=== PATIENT | female | born 1990 | race Caucasian/White ===

== ENCOUNTER 2017-07-30 06:08 | Emergency (ER) | payer OTHER ==
[2017-07-30] MEDS ORDERED: NS 0.9% 1000 ML* 1,000 ML IV ONE (07:46)
[2017-07-30] MEDS ORDERED: Metoclopramide IV* 5 MG/ML 2 ML VIAL IV ONE (07:47)
[2017-07-30 08:04] LABS: Hematocrit 35 % (35-47); Hemoglobin 12.1 g/dl (12.0-16.0); Mean Corpuscular HGB Conc 35 g/dl (31-36); Mean Corpuscular Hemoglobin 31 pg (27-31); Mean Corpuscular Volume 89 fL (80-97); Mean Platelet Volume 7 um3 (7.4-10.4); Red Blood Count 3.92 10^6/ul (4.0-5.4); Red Cell Distribution Width 13 % (10.5-15); White Blood Count 6.5 10^3/ul (3.5-10.8)
[2017-07-30 08:10] LABS: Urine Bacteria Absent (Absent); Urine Bilirubin Negative (Negative); Urine Glucose Negative (Negative); Urine Nitrite Negative (Negative)
[2017-07-30 08:19] LABS: Albumin 3.3 g/dL (3.2-5.2); BUN/Creatinine Ratio 17.1 (8-20); C Reactive Protein 3.32 mg/L (< 5.00); Calcium 8.6 mg/dL (8.6-10.3); EGFR African American 237.6 (>60); EGFR Non-African American 184.7 (>60); Globulin 3.3 g/dL (2-4); Magnesium 1.8 mg/dL (1.9-2.7); Potassium 3.4 mmol/L (3.5-5.0); Total Bilirubin 0.3 mg/dL (0.2-1.0); Total Protein 6.6 g/dL (6.4-8.9)
--- NOTE | 2017-07-30 09:31 | RAD ---
INDICATION: Cramping, history of premature delivery 28 weeks. COMPARISON: There are no prior studies available for comparison. TECHNIQUE: Multiple real-time transabdominal images of the pelvis were obtained. FINDINGS: This exam demonstrates a single intrauterine in a variable presentation. cardiac activity and limb motion are noted. The heart rate was 146 beats per minute. The placenta was located posterior along the body and fundus of the uterus. There is no placenta previa. The amniotic fluid volume appeared to be within normal limits. The cervix measured 4.9 cm in length. Biparietal diameter (cm): 4.8 20 weeks 4 days Head circumference (cm): 19.1 21 weeks 3 days Abdominal circumference (cm): 50.6 20 weeks 6 days Femur length (cm): 3.5 21 weeks 0 days The composite estimated gestational age was 21 weeks 0 days. The estimated weight at this time is 385 grams plus or minus 57 grams. The head, ventricles, cisterna magna, spine, cardiac area, renal area, cord insertion, stomach, bladder and three-vessel cord are visualized and appear to be within normal limits. There are choroid plexus cysts present within the lateral ventricle. IMPRESSION: 1. THERE IS A SINGLE INTRAUTERINE IN THE VARIABLE PRESENTATION WITH A COMPOSITE ESTIMATED GESTATIONAL AGE OF 21 WEEKS 0 DAYS. 2. CHOROID PLEXUS CYSTS. RECOMMEND A LEVEL II ULTRASOUND FOR FURTHER EVALUATION.
[2017-07-30] MEDS ORDERED: Potassium Chlor TAB* 20 MEQ TAB.ER PO ONE (10:08)
--- NOTE | 2017-07-30 11:37 | ED ---
Frank Rodriguez Angela, scribed for Chris Keith MD on 07/30/17 at 0749 . Back Pain - HPI Summary HPI Summary: This pt is a 27 y/o presenting, currently (unsure of how far along ), presenting to [facility] c/o left flank pain. Pt reports her pain radiates from her left sided abd to her left-sided back. She additionally states she has had vomiting in the mornings. Pt denies vaginal bleeding or discharge, dysuria, diarrhea. Pt notes all her deliveries were vaginal, her last was 4 years ago and her baby was premature at 28 Weeks. She states that 4 years ago she was told by her PCP she had possible cervical CA. Pt is an every day smoker. LMP: February 2017. - History of Current Complaint Chief Complaint: EDFlankPain Stated Complaint: PREG, FLANK PAIN Time Seen by Provider: 07/30/17 07:15 Hx Obtained From: Patient Hx Last Menstrual Period: February 2017 Onset/Duration: Lasting Days Onset/Duration: Started Days Ago Back Pain Location: Is Discrete @ - left sided Pain Intensity: 5 Associated Signs And Symptoms: Positive: Flank Pain - left, Other - vomiting. Negative: Fever - Allergies/Home Medications Allergies/Adverse Reactions: Allergies Allergy/AdvReac Type Severity Reaction Status Date / Time No Known Allergies Allergy Verified 07/30/17 06:16 PMH/Surg Hx/FS Hx/Imm Hx Endocrine/Hematology History: Denies: Hx Diabetes Cardiovascular History: Denies: Hx Hypertension Infectious Disease History: No Infectious Disease History: Denies: Traveled Outside the [place] in Last 30 Days - Family History Known Family History: Positive: Other - gallbladder, kidney stones, stomach CA - Social History Alcohol Use: None Substance Use Type: Reports: Marijuana Smoking Status (MU): Light Every Day Tobacco Smoker Review of Systems Negative: Fever, Chills Eyes: Negative Positive: Vomiting. Negative: Abdominal Pain, Diarrhea Positive: flank pain - left sided. Negative: dysuria, discharge, other - vaginal bleeding or discharge All Other Systems Reviewed And Are Negative: Yes Physical Exam Triage Information Reviewed: Yes Vital Signs On Initial Exam: Initial Vitals Temp Pulse Resp BP Pulse Ox 97.4 F 108 18 111/61 100 07/30/17 06:15 07/30/17 06:15 07/30/17 06:15 07/30/17 06:15 07/30/17 06:15 Vital Signs Reviewed: Yes Appearance: Positive: Well-Appearing, No Pain Distress Skin: Positive: Skin Color Reflects Adequate Perfusion Head/Face: Positive: Normal Head/Face Inspection Eyes: Positive: EOMI ENT: Positive: Normal ENT inspection, Pharynx normal Neck: Positive: Supple, Nontender Respiratory/Lung Sounds: Positive: Clear to Auscultation, Breath Sounds Present Cardiovascular: Positive: RRR. Negative: Murmur Abdomen Description: Positive: Nontender, Other: - gravid abdomen Musculoskeletal: Positive: Strength/ROM Intact Neurological: Positive: Sensory/Motor Intact, Alert, Oriented to Person Place, Time, CN Intact II-III Psychiatric: Positive: Normal - [place] Coma Scale Best Eye Response: 4 - Spontaneous Best Motor Response: 6 - Obeys Commands Best Verbal Response: 5 - Oriented Coma Scale Total: 15 Diagnostics - Vital Signs Vital Signs Temp Pulse Resp BP Pulse Ox 07/30/17 06:15 97.4 F 108 18 111/61 100 - Laboratory Result Diagrams: 07/30/17 07:50 07/30/17 07:50 Lab Statement: Any lab studies that have been ordered have been reviewed, and results considered in the medical decision making process. - Ultrasound No standard instances Ultrasound Interpretation: Positive (See Comments) - Ultrasound IMPRESSION : 1. THERE IS A SINGLE INTRAUTERINE IN THE VARIABLE PRESENTATION WITH A COMPOSITE ESTIMATED GESTATIONAL AGE OF 21 WEEKS 0 DAYS. 2. CHOROID PLEXUS CYSTS. RECOMMEND A LEVEL II ULTRASOUND FOR FURTHER EVALUATION. ED physician has reviewed this radiology report and agrees. Ultrasound Interpretation Completed By: Radiologist Re-Evaluation - Re-Evaluation First Eval Re-Evaluation Time: 09:39 Comment: I reviewed the US with the pt. Back Pain Course/Dx - Course Course Of Treatment: 27 yr old female who is now comfortable. The case was discussed with Dr Gallagher, [employer] and he will see the patient in follow up. He asked me to add on labs, and he will follow up with them. The patient was informed of the need to follow up with OB for the level 2 sonogram. She is aware of the potential abnormality in the brain of the baby that requires further screening by the OB she has been referred to. Dr Gallagher is also aware of the sonogram finding today. - Diagnoses Provider Diagnoses: Abdominal pain in Discharge - Discharge Plan Condition: Good Disposition: HOME Patient Education Materials: (ED), Abdominal Pain in (ED) Referrals: Donavon Gallagher MD [Medical Doctor] - 1 Day No Primary Care Phys,NOPCP [Primary Care Provider] - The documentation as recorded by the Frank mendoza Angela accurately reflects the service I personally performed and the decisions made by me, Chris Keith MD.
[2017-07-30 11:47] VITALS: BP 102/60
[2017-07-30 12:48] LABS: Syphilis Index < 0.1 Index
[2017-07-30 13:44] LABS: Call Hep C TO BE CALLED
== END 2017-07-30 12:05 | disposition home or self-care (01) ==
LOC: ED 06:08
DX: O26.93 Pregnancy related conditions, unspecified, third trimester (principal); R10.9 Unspecified abdominal pain; Z3A.28 28 weeks gestation of pregnancy; O99.333 Smoking (tobacco) complicating pregnancy, third trimester
CPT/HCPCS: 36415; 76805; 80053; 81003; 81015; 82150; 83605; 83690; 83735; 84702; 85025; 86140; 86592; 86703; 86762; 86803; 86850; 86900; 86901; 87086; 87340; 96360; 96374; 99283; A9270-GY

== ENCOUNTER 2017-12-07 19:04 | Inpatient (IN) | payer OTHER ==
[2017-12-07 20:32] LABS: Hematocrit 34 % (35-47); Hemoglobin 11.3 g/dl (12.0-16.0); Mean Corpuscular HGB Conc 33 g/dl (31-36); Mean Corpuscular Hemoglobin 28 pg (27-31); Mean Corpuscular Volume 84 fL (80-97); Mean Platelet Volume 8 um3 (7.4-10.4); Platelet Count 243 10^3/ul (150-450); Red Blood Count 4.09 10^6/ul (4.0-5.4); Red Cell Distribution Width 14 % (10.5-15); White Blood Count 12.9 10^3/ul (3.5-10.8)
[2017-12-07] MEDS ORDERED: OBEPIDURAL* 0 ML EPIDURAL ONE (20:53)
[2017-12-07] MEDS ORDERED: OBEPIDURAL* 250 ML EPIDURAL ONE (20:55)
[2017-12-07] MEDS ORDERED: Sodium Citrate/Citric Acid* 15 ML UDC PO PRN (22:00)
[2017-12-07] MEDS ORDERED: Phenylephrine IV* 40 MCG/ML 10 ML SYRINGE IV PUSH PRN ×2 (22:00)
[2017-12-07] MEDS ORDERED: Famotidine TAB* 20 MG PO PRN (22:00)
[2017-12-07] MEDS ORDERED: OBEPIDURAL* 250 ML EPIDURAL SCH (22:00)
[2017-12-07] MEDS ORDERED: Oxytocin in LR* 20 UNITS/1,000 ML BAG IVPB ONE (22:29)
[2017-12-07] MEDS ORDERED: Acetaminophen TAB* 325 MG PO PRN (22:46)
[2017-12-07] MEDS ORDERED: Glycerin ADULT SUPP PR PRN (22:46)
[2017-12-07] MEDS ORDERED: Witch Hazel PAD* JAR TOPICAL PRN (22:46)
[2017-12-07] MEDS ORDERED: Dibucaine 1% 28.35 GM TUBE PR PRN (22:46)
[2017-12-07] MEDS ORDERED: Oxytocin in LR* 20 UNITS/1,000 ML BAG IVPB SCH (23:00)
[2017-12-08] MEDS: Ibuprofen TAB* 600 MG PO PRN ×3 (00:36→16:04)
[2017-12-08 06:51] LABS: ABS Basophils 0 10^3/ul (0-0.2); ABS Eosinophils 0.1 10^3/ul (0-0.6); ABS Lymphocytes 1.8 10^3/ul (1.0-4.8); ABS Neutrophils 13.3 10^3/ul (1.5-7.7); ABS Nucleated RBC 0 10^3/ul; Eosinophil % 0.3 % (0-6); Hematocrit 28 % (35-47); Hemoglobin 9.5 g/dl (12.0-16.0); Lymphocyte % 11.1 % (25-47); Mean Corpuscular HGB Conc 34 g/dl (31-36); Mean Corpuscular Hemoglobin 28 pg (27-31); Mean Corpuscular Volume 83 fL (80-97); Mean Platelet Volume 8 um3 (7.4-10.4); Nucleated Red Blood Cells % 0; Platelet Count 194 10^3/ul (150-450); Red Cell Distribution Width 14 % (10.5-15); White Blood Count 16.1 10^3/ul (3.5-10.8)
[2017-12-08] MEDS: Docusate CAP* 100 MG PO SCH ×3 (07:30→20:14)
[2017-12-08] MEDS: Ferrous Gluconate TAB* 324 MG TAB PO SCH ×2 (07:30→20:14)
[2017-12-08] MEDS ORDERED: Simethicone TAB* 80 MG TAB.CHEW PO SCH (08:30)
[2017-12-08 19:54] VITALS: BP 108/66
[2017-12-09] MEDS: Ibuprofen TAB* 600 MG PO PRN ×2 (06:01→14:20)
[2017-12-09] MEDS: Ferrous Gluconate TAB* 324 MG TAB PO SCH (09:23)
[2017-12-09] MEDS: Docusate CAP* 100 MG PO SCH ×2 (09:23→14:20)
== END 2017-12-09 15:53 | disposition home or self-care (01) | DRG 560 ==
LOC: MCHOBOUT 19:04 → MCHOB 19:56
PROVIDERS: ADMIT Midwife; ATTEND Midwife
PROC: 10E0XZZ Delivery of Products of Conception, External Approach (ICD-10-PCS; principal; 2017-12-07)
DX: O98.42 Viral hepatitis complicating childbirth (principal); O99.344 Other mental disorders complicating childbirth; B19.20 Unspecified viral hepatitis C without hepatic coma; O90.81 Anemia of the puerperium; D64.9 Anemia, unspecified; F43.10 Post-traumatic stress disorder, unspecified; F41.8 Other specified anxiety disorders; Z3A.39 39 weeks gestation of pregnancy; Z37.0 Single live birth
CPT/HCPCS: 36415; 80307; 84112; 85025; 85027; 86850; 86900; 86901; A9270-GY

== ENCOUNTER 2019-05-02 15:49 | Emergency (ER) | payer OTHER ==
--- NOTE | 2019-05-02 18:30 | ED ---
Lower Extremity - HPI Summary HPI Summary: 28-year-old female presents with left ankle and foot injury today. She states that she ended up twisting her foot when fell off bed. She inverted it. She has pain over lateral aspect of the ankle. Some numbness in the foot. She is not able to walk. States she felt a pop when it happened. Took some Aleve which helped the pain. - History of Current Complaint Chief Complaint: EDExtremityLower Stated Complaint: FELL AND HURT LT ANKLE PER PT Time Seen by Provider: 05/02/19 17:30 Hx Last Menstrual Period: February 2017 Pain Intensity: 4 - Allergies/Home Medications Allergies/Adverse Reactions: Allergies Allergy/AdvReac Type Severity Reaction Status Date / Time bee venom protein (honey bee) Allergy Swelling Verified 05/02/19 15:55 clams Allergy Hives/Diff. Verified 05/02/19 15:55 Breathing/I tching PMH/Surg Hx/FS Hx/Imm Hx Endocrine/Hematology History: Denies: Hx Diabetes Cardiovascular History: Denies: Hx Hypertension Psychiatric History: Reports: Hx Anxiety, Hx Depression, Hx Post Traumatic Stress Disorder, Other Psychiatric Issues/Disorders - PTSD, bipolar, hx addiction, clean 4 years Infectious Disease History: No Infectious Disease History: Denies: Traveled Outside the [place] in Last 30 Days - Family History Known Family History: Positive: Other - gallbladder, kidney stones, stomach CA - Social History Alcohol Use: None Substance Use Type: Reports: None Smoking Status (MU): Former Smoker Have You Smoked in the Last Year: Yes Review of Systems Negative: Fever Negative: Chest Pain Negative: Shortness Of Breath Positive: Myalgia - left ankle pain All Other Systems Reviewed And Are Negative: Yes Physical Exam Triage Information Reviewed: Yes Vital Signs On Initial Exam: Initial Vitals Temp Pulse Resp BP Pulse Ox 97.4 F 117 14 105/82 95 05/02/19 15:50 05/02/19 15:50 05/02/19 15:50 05/02/19 15:50 05/02/19 15:50 Vital Signs Reviewed: Yes Appearance: Positive: Well-Appearing Skin: Positive: Warm, Dry Head/Face: Positive: Normal Head/Face Inspection Eyes: Positive: Normal, Conjunctiva Clear ENT: Positive: Pharynx normal Respiratory/Lung Sounds: Positive: Clear to Auscultation, Breath Sounds Present Cardiovascular: Positive: Normal, RRR Musculoskeletal: Positive: Strength/ROM Intact - left ankle and foot, Edema Left - foot, Other - ecchymosis to lateral aspect of left foot, tenderness lateral malleolus, good pulses Neurological: Positive: Normal Psychiatric: Positive: Normal Diagnostics - Vital Signs Vital Signs Temp Pulse Resp BP Pulse Ox 05/02/19 15:50 97.4 F 117 14 105/82 95 - Laboratory Lab Statement: Any lab studies that have been ordered have been reviewed, and results considered in the medical decision making process. - Radiology foot, ankle Radiology Interpretation Completed By: Radiologist Summary of Radiographic Findings: IMPRESSION: NO RADIOGRAPHICALLY APPARENT FRACTURE OF THE LEFT FOOT OR ANKLE. Lower Extremity Course/Dx - Course Course Of Treatment: 28-year-old female presents with left ankle and foot injury today. She states that she ended up twisting her foot when fell off bed. She inverted it. She has pain over lateral aspect of the ankle. Some numbness in the foot. She is not able to walk. States she felt a pop when it happened. Took some Aleve which helped the pain. On exam tenderness over lateral aspect of left ankle and foot. Neurovascularly intact. X-ray shows no fracture. gave gel splint and crutches. Told to follow-up with ortho. Told ice and elevate. Patient understands agrees with plan. - Diagnoses Differential Diagnosis/HQI/PQRI: Positive: Contusion, Fracture (Closed), Sprain Provider Diagnoses: Left ankle injury Discharge - Sign-Out/Discharge Documenting (check all that apply): Patient Departure Patient Received Moderate/Deep Sedation with Procedure: No - Discharge Plan Condition: Good Disposition: HOME Patient Education Materials: Ankle Sprain (ED) Referrals: George Aguilar MD [Medical Doctor] - Additional Instructions: Stay off ankle as much as possible Ice, elevate, keep in [place] Ibuprofen or tyenlol every 6 hours for pain Follow up with ortho if no improvement Return to ED if develop or any new or worsening symptoms - Billing Disposition and Condition Condition: GOOD Disposition: Home
[2019-05-02 19:15] VITALS: BP 120/48
== END 2019-05-02 19:11 | disposition home or self-care (01) ==
LOC: ED 15:49
DX: S99.912A Unspecified injury of left ankle, initial encounter (principal); W06.XXXA Fall from bed, initial encounter; Z87.891 Personal history of nicotine dependence
CPT/HCPCS: 99282